=== PATIENT | male | born 1960 | race Caucasian/White ===

== ENCOUNTER 2025-03-14 12:53 | Outpatient (AMB) | payer BC, SELFPAY ==
[2025-03-14 12:57] VITALS: BP 140/88; PULSE 75; RESP 14; TEMP 37; O2SAT 99; BMI 24.1
--- NOTE | 2025-03-14 12:57 | MHC.PC.OV ---
Vital Signs 03/14/25 12:57 Height 5 ft 10 in Weight 168 lb BMI 24.1 BP 140/88 H Blood Pressure Location Lt brachial Position Sitting Respiration 14 Pulse 75 Pulse Source Pulse Oximeter Temp 98.6 F Temp Source Oral Pulse Oximetry (%) 99 Oxygen Delivery Method Room Air Intake Visit Reasons: establish care Intake Note: Patient is a new patient here to establish care. Transferring care from [facility] in [place], [place]. Medical records have been requested and have been received. Manager Technical Training Required: No Accompanied by: Self / Same As Patient Allergies No Known Allergies Allergy (Verified 03/14/25 13:21) Medication List - Last Reconciled 03/14/25 by ASHLEE King No Known Home Meds Tobacco use date assessed: 03/14/25 Dental Screening Dental Screen Date: 03/14/25 Did you have a dental visit in the last 12 months?: Yes Did you have a dental problem in the last 6 months where you did not have access to dental care?: No Was dental information given to patient?: Patient has dentist HPI establish care HPI Details Previous PCP:Sarmad [facility] in [place], [place] Last visit: 1.5 year ago Last PE: same Specialist: [employer] ([employer]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 He reports his blood pressure has been borderlined elevated, most recently noted at 140/88 mmHg during this visit, although not previously on medication. He suspects high salt intake in his diet as a potential factor for his elevated readings. The patient is asymptomatic apart from his known intermittent blood pressure elevations. Additionally, the patient describes persistent lower back pain following a fall last winter, resulting in blunt trauma to the sciatica, which initially caused swelling and bruising. Although acute symptoms subsided, he continues to experience pain during physical activities that strain his back. He has found that rest and positioning alleviate his symptoms. The patient has a notable family history of skin cancer, prompting regular dermatologic monitoring. While he had a skin lesion noted during showers where the skin occasionally breaks, dermatologic evaluation confirmed no malignancy. He remains mindful and monitors his skin regularly. Blood pressure elevated in office. colonoscopy: July,. 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 1. Little interest or pleasure in doing things: not at all 2. Feeling down, depressed, or hopeless: not at all 3. Trouble falling or staying asleep, or sleeping too much: not at all 4. Feeling tired or having little energy: not at all 5. Poor appetite or overeating: not at all 6. Feeling bad about yourself - or that you are a failure or have let yourself or your family down: not at all 7. Trouble concentrating on things, such as reading the newspaper or watching television: not at all 8. Moving or speaking so slowly that other people could have noticed. Or the opposite - being so fidgety or restless that you have been moving around a lot more than usual: not at all 9. Thoughts that you would be better off or of hurting yourself in some way: not at all Total score: 0 Depression Screening Interpretation: Negative Depression Screening Done: Yes 97839 - PHQ-9 Billing: Yes Source: Developed by Drs. Jr Olivarez, Patricia Whitley, Milan Neri and colleagues, with an educational kevin from [employer]. Thrive Questionnaire Date Thrive assessed: 03/14/25 I am a: Patient What is your living situation today?: I have a steady place to live Within the past 12 months, did the food you bought not last and you didn't have the money to get more?: Never true Within the past 12 months, did you worry whether your food would run out before you got money to buy more?: Never true Do you have trouble paying for medicines?: No Do you have trouble getting transportation to medical appointments?: No Do you have trouble paying your heating and electricity bill?: No Do you have trouble taking care of your child, family member or friend?: No Do you have trouble with day-to-day activities such as bathing, preparing meals, shopping, managing finances, etc.?: No Are you currently unemployed and looking for a job?: No Are you interested in more education?: No Please select the resources that you would like help with: None Currently or been in a relationship where the following occur: No concerns reported THRIVE Score: 0 AUDIT C Alcohol Use Questionnaire (AUDIT-C) 1. How often do you have a drink containing alcohol?: 4 or more times a week 2. How many drinks containing alcohol do you have on a typical day when you are drinking?: 1 or 2 3. How often do you have six or more drinks on one occasion?: Never Total Score: 4 Score Reviewed/Action Taken: Yes DARIA-7 AMB Questionnaire DARIA-7 Date DARIA - 7 assessed: 03/14/25 Feeling nervous, anxious, or on edge: 1 = Several days Not being able to stop or control worryin = Not at all Worrying too much about different things: 0 = Not at all Trouble relaxin = Not at all Being so restless that it is hard to sit still: 0 = Not at all Becoming easily annoyed or irritable: 0 = Not at all Feeling afraid as if something awful might happen: 0 = Not at all Total DARIA-7 score (0-4 normal; 5-9 mild; 10-14 moderate; 15-21 severe): 1 Source: Developed by Patricia Barillas. Gutierrez, Milan Neri and colleagues, with an educational kevin from [employer]. DARIA-7 Assessment Billing DARIA-7 Assessment Tool: DARIA-7 Assessment 06709 Review of Systems Const Denies headache(s) Eyes Denies loss of vision ENT Denies vertigo, Denies dizziness, Denies headache(s) and Denies sore throat Card Denies chest pain, Denies leg edema and Denies lightheadedness Resp Denies cough, Denies hemoptysis and Denies wheezing GI Denies abdominal pain, Denies melena, Denies constipation, Denies diarrhea and Denies vomiting Denies dysuria, Denies urinary frequency and Denies urinary urgency Musc Reports back pain (soreness from post fall), Denies arthralgias, Denies joint swelling, Denies numbness and Denies tingling Skin/Breast Reports lesions (left upper back skin tag appearing lesion) Neuro Denies Abnormal speech present, Denies behavioral changes, Denies vertigo, Denies dizziness, Denies headache(s), Denies loss of vision, Denies memory loss, Denies numbness and Denies tingling Psych Denies anxiety, Denies behavioral changes, Denies depression, Denies memory loss and Denies panic attacks Jorgito/Lymph Denies easy bleeding and Denies easy bruising Aller/Immun Denies wheezing Physical exam (Primary Care) Vital Signs: Last Vital Signs Temp 98.6 F 03/14/25 12:57 Pulse 75 03/14/25 12:57 Resp 14 03/14/25 12:57 BP 140/88 H 03/14/25 12:57 Pulse Ox 99 03/14/25 12:57 Oxygen Delivery Method Room Air 03/14/25 12:57 BMI result Body Mass Index 24.1 Tobacco/Smoking Status: Tobacco use Status Tobacco use date assessed 03/14/25 03/14/25 13:13 Patient Tobacco Use Status Never used Tobacco 03/14/25 13:13 e-Cigarette/Vaping Use Never Used 03/14/25 13:13 PHQ-9: PHQ-9 Score PHQ-9: Total score 0 03/14/25 13:13 Depression Screening Interpretation: Negative Thrive Assessment: Date of Thrive Assessment Date Thrive assessed 03/14/25 03/14/25 13:13 Currently or been in a relationship where the following occur: No concerns reported Const General: healthy appearing, no acute distress, alert and awake Nutritional Appearance: well nourished Orientation/consciousness: oriented to person, oriented to place and oriented to time HENMT Ears: TM's normal bilaterally General nose exam: Normal nasal mucous membranes and turbinates present Eyes Conjunctivae: conjunctivae normal Sclerae: sclerae normal Pupils: Equal, round and reactive pupils present Neck Neck: Yes no lymphadenopathy and Yes no JVD Thyroid: Thyroid normal Carotids: no bruits Resp Effort & Inspection: normal respiratory effort and not tachypneic Auscultation: no crackles, no rales, no rhonchi and no wheezes Cardio Rate: regular rate Rhythm: regular rhythm Heart sounds: no murmurs and normal S1 and S2 GI Palpation (GI): Soft to palpation, nontender, no hepatomegaly and no splenomegaly Auscultation: normal bowel sounds Skin General skin exam: dry skin Lesions: lesion noted (left upper back skin colored, skin tag) Neuro General: oriented to person, oriented to place and oriented to time Cranial nerves: Yes Equal, round and reactive pupils present Speech: No Abnormal speech present Gait exam (Neuro): Normal gait present Motor exam (neuro): no tremor noted Extrem Right upper extremity: full ROM Left upper extremity: full ROM Right lower extremity: full ROM; no edema Left lower extremity: full ROM; no edema Psych Mental Status: mental status grossly normal Speech and movement: Normal speech and movement present Affect: normal affect Attitude: cooperative Thought process: Normal thought process present Coding Level of Care Code New Pt Level 3 (20349) Diagnoses Family history of skin cancer Z80.8 Elevated blood pressure reading in office without diagnosis of hypertension R03.0 Additional Codes DARIA-7 Assessment Billing - DARIA-7 Assessment Tool: DARIA-7 Assessment 95524 ([id number]) PHQ-9 - 02306 - PHQ-9 Billing: Yes ([id number]) Time Spent (min) 34 Assessment & Plan Assessment & Plan (1) Family history of skin cancer: Code(s): Z80.8 - Family history of malignant neoplasm of other organs or systems Category: Medical Plan: skin colored, skin tag appearing lesion to left upper back reports being present for years without any changes evaluated by dermatology, no concerns he was instructed to follow in 2 years instead one (2) Elevated blood pressure reading in office without diagnosis of hypertension: Code(s): R03.0 - Elevated blood-pressure reading, without diagnosis of hypertension Category: Medical Plan: Elevated blood pressure reports eating a high amount of salt and drinking two drinks of alcohol nightly encouraged to cut down on both salt and alcohol intake will order labs and advise Return in 7 weeks for lab review and annual physical Orders: Orders UA CC w/rflx Micro + Cult Today Z00.00 - Encounter for general adult medical examination without abnormal findings Vitamin D 25-OH Total Today Z00.00 - Encounter for general adult medical examination without abnormal findings PSA,Total (Free>4and<10) Today Z00.00 - Encounter for general adult medical examination without abnormal findings Complete Blood Count Auto Diff Today Z00.00 - Encounter for general adult medical examination without abnormal findings Comprehensive [place]. Panel Fast Today Z00.00 - Encounter for general adult medical examination without abnormal findings Lipid Panel Today Z00.00 - Encounter for general adult medical examination without abnormal findings TSH reflex Free T4 Today Z00.00 - Encounter for general adult medical examination without abnormal findings
== END 2025-03-14 13:58 | disposition home or self-care (01) ==
DX: Z80.8 Family history of malignant neoplasm of other organs or systems (principal); R03.0 Elevated blood-pressure reading, without diagnosis of hypertension

== ENCOUNTER → 2025-03-14 12:53 | Outpatient (BNVA) | payer BC, SELFPAY | DX: R03.0 Elevated blood-pressure reading, without diagnosis of hypertension (principal); M54.50 Low back pain, unspecified; Z80.8 Family history of malignant neoplasm of other organs or systems | CPT/HCPCS: 96127 ==

== ENCOUNTER 2025-05-24 09:20 | Outpatient (REF) | payer BC, SELFPAY ==
[2025-05-24 09:47] LABS: MANUAL DIFF FLAG NO
--- OUTSIDE RECORDS SUMMARY | 2025-05-24 09:57 | XMS_ITS | Clinical Summary ---
Author Organization [facility] Address [address] [place] [address] [place] [id number] Phone Care Team Providers Care Strap Stitcher Name Role Phone Kelly Adams Primary Care Prov ider Allergies No known active allergies Medications naproxen sodium (ALEVE) 220 MG tablet Take 220 mg by mouth every 12 (twelve) hours as needed for pain (specific location in comments). Active Social History Tobacco Use Types Packs/Day Years Used Date Smoking Tobacco: Never Smokeless Tobacco: Never Tobacco Cessation:Counseling Given: Not Answered Alcohol Use Standard Drinks/Week Comments Yes 7 (1 standard drink = 0.6 oz pur e alcohol) 1 per day Education Answer Date Recorded Are you interested in more education? Not on martita e 06/29/2024 Are you concerned about learning? Not on file 06/29/2024 No 06/29/2024 No 06/29/2024 Digital Access Answer Date Recorded No 06/29/2024 No 06/29/2024 Reliable internet access at home? Not on file 06/29/2024 Device with a working camera? Not on file Intimate Partner Violence Answer Date R ecorded Denied Basic Needs Not on file 08/19/2024 In the past 12 months have y ou been in a relationship with a person who hurts, threatens, or tries to control you? No 08/19/2024 Worried food would run out Not on file 08/19 In the past 12 months have y ou been in a relationship with a person who hurts, threatens, or tries to control you? No 08/19/2024 Sex and Gender Information Value Date Recorded Sex Assigned at Not on file Legal Sex Male 9:45 PM EDT Gender Identity Not on file Sexual Orientation Not on file Last Filed Vital Signs Vital Sign Reading Time Taken Comments Blood Pressure 145/94 08/24/2024 1:28 PM EST Pulse 80 08/24/2024 1:28 PM EST Temperature 36.3 C (97.4 F) 08/24/2024 1:10 PM EST Respiratory Rate 16 08/24/2024 1:28 PM EST Oxygen Saturation 98% 08/24/2024 1:28 PM EST Inhaled Oxygen Concentration - - Weight 74.4 kg (164 lb) 08/19/2024 1:53 PM EST Height 177.8 cm (5' 10 ) 08/19/2024 1:53 PM EST Body Mass Index 23.53 08/19/2024 1:53 PM EST Plan of Treatment Health Maintenance Due Date Last Done Comments Adult Td,Tdap Booster 1960 LIPID PANEL 1960 DEPRESSION SCREENING 1974 HEPATITIS C SCREENING 1980 HIV ONE-TIME SCREENING (18-6 5 YEARS) 1980 COLOGUARD 2007 FIT TEST 2007 FOBT 2007 SIGMOIDOSCOPY 2007 VIRTUAL COLONOSCOPY 2007 PNEUMOCOCCAL VACCINES (50+ y ears) (1 of 1 - PCV) 2012 ZOSTER VACCINES (1 of 2) 2012 COVID-19 VACCINE ( - 2023-2 5 season) 2024 COLONOSCOPY 08/24/2034 08/24/2024 COLORECTAL CANCER SCREENING 08/24/2034 RSV VACCINE (1 - 1-dose 75+ series) 2037 SMOKING STATUS SCREENING (On ce After 26 Yrs) Completed 08/24/2024 HEPATITIS A VACCINES Aged Out No long er eligible based on patient's age to complete this topic HIB VACCINES Aged Out No longer eligi ble based on patient's age to complete this topic MENINGOCOCCAL VACCINES (ACWY) Aged Out No longer eligible based on patient's age to complete this topic MENINGOCOCCAL VACCINES (B) Aged Out N o longer eligible based on patient's age to complete this topic Medical Devices Implanted Type Area Fashion Photographer Device Identifier Shelf Expiration Date Model / Serial / Lot Clip Hemostasis 360deg 235cm Resolution 360 Latex Free 2.8mm Channel Bx/20ea - [id number] Implanted:Qty: 2 on 08/24/2024 by Lyndon Smith MD at [facility] [employer] [id number] / / Procedures Procedure Name Priority Date/Time Associated Diagnosis Comments ENDOSCOPY, COLON 08/24/2024 12:4 4 PM EST from Last 3 Months or Most Recently Relevant to Health Maintenance Results * ENDOSCOPY, COLON (08/24/2024 12:44 PM EST) Narrative Transcriptions Lyndon Smith MD - 08/24/2024 12:44 PM EST [facility] Patient Name: Chandler Yeboah Attending MD:: LYNDON SMITH MD, , Procedure Date: 08/24/2024 12:44PM Date of : 1960 Age: 64 Admit Type: Outpatient Gender: Male Room: [place] [address] Referring MD: MARK Rico Exam Type: Colonoscopy Indications: Screening for colorectal malignant neoplasm Medications: Monitored Anesthesia Care Procedure: Informed consent was obtained from the patientafter discussion of the indications, limitations, alternatives, benefits, and risks of the procedure. Risks specifically discussed include but are not limited to medication reactions, missed lesions, bleeding, perforation, or the need for emergent surgery. Throughout the procedure, the patient's blood pressure, pulse, end-tidal CO2, and oxygensaturations were monitored continuously. The Colonoscope was introduced through the anus and advanced to the cecum, identified by appendiceal orifice and ileocecal valve. The colonoscopy was performed without difficulty. The patient tolerated the procedure well. The quality of the bowel preparation was excellent. The quality of the bowel preparation was evaluated using the BBPS (BostonBowel Preparation Scale) with scores of: Right Colon = 3, Transverse Colon = 3 and Left Colon = 3 (entiremucosa seen well with no residual staining, smallfragments of stool or opaque liquid). The total BBPS score equals 9. Anatomical landmarks were photographed. Complications: No immediate complications. Estimated blood loss: Minimal. Findings: The perianal and digital rectal examinations were normal. A 7 mm polyp was found in the sigmoid colon. Thepolyp was sessile. The polyp was removed with a coldsnare. Resection and retrieval were complete. To prevent bleeding after the polypectomy, one hemostatic clip was successfully placed (MR conditional). There wasno bleeding at the end of the procedure. A 5 mm polyp was found in the rectum. The polyp was sessile. The polyp was removed with a cold snare. Resection and retrieval were complete. To prevent bleeding after the polypectomy, one hemostatic clip was successfully placed (MR conditional). There wasno bleeding at the end of the procedure. The exam was otherwise normal throughout theexamined colon. Impression: - One 7 mm polyp in the sigmoid colon, removed witha cold snare. Resected and retrieved. Clip (MR conditional) was placed. - One 5 mm polyp in the rectum, removed with a cold snare. Resected and retrieved. Clip (MRconditional) was placed. Recommendation: - Discharge patient to home. - Await pathology results. LYNDON SMITH MD, 08/24/2024 1:10:40 PM This report has been signed electronically. Number of Addenda: 0 Note Initiated On: 08/24/2024 12:44 PM Procedure Code(s): --- Professional --- 53664, Colonoscopy, flexible; with removal of tumor(s), polyp(s), or other lesion(s) by snare technique --- Technical --- 95296, Colonoscopy, flexible; with removal of tumor(s), polyp(s), or other lesion(s) by snare technique Diagnosis Code(s): --- Professional --- Z12.11, Encounter for screening for malignantneoplasm of colon D12.5, Benign neoplasm of sigmoid colon D12.8, Benign neoplasm of rectum --- Technical --- Z12.11, Encounter for screening for malignantneoplasm of colon D12.5, Benign neoplasm of sigmoid colon D12.8, Benign neoplasm of rectum CPT copyright 2021 [employer]. All rights reserved. The codes documented in this report are preliminary and upon prototype carpenter reviewmay be revised to meet current compliance requirements. Procedure Date: 08/24/2024 12:44:[address] [place] [address] Kelly FLORES GI PROCEDURE ORDER JEREMIAH Final Result from Last 3 Months or Most Recently Relevant to Health Maintenance Insurance [facility] PPO EPO [facility] PPO EPO PPO EPO PPO EPO [facility] PPO EPO Member Subscriber Plan / Payer (Ef fective 2024-Present) Name:Chandler Yeboah Relation to Subscriber:Spouse Name:YEBOAHABDIRIZAK Date of :1900 (Home) Address: [address] [place] [id number] Payer ID:[id number] (NAIC) Type:PPO Address: [address] [place], [place] [facility] PPO EPO Member Subscriber Plan / Payer (Ef fective 2024-Present) Name:Chandler Yeboah Relation to Subscriber:Spouse Name:YEBOAHABDIRIZAK PRIETO Date of :1900 (Home) Address: [address] [place] [address] Payer ID:[id number] (NAIC) Type:PPO Address: [address] [place], [place] Care Teams Strap Stitcher Relationship Specialty Start Date End Date Kelly Adams PA [address] [place] [phone] PCP - General Physician Ict Teacher 06/29/24 Additional Source Comments The information contained in this document represents components of the legal health record. It is not the complete legal health record.[facility]
--- OUTSIDE RECORDS SUMMARY | 2025-05-24 09:57 | XMS_ITS | Encounter Summary ---
Author Organization [facility] Address [address] [place] [phone] Phone Care Team Providers Care General Adjuster Name Role Phone Kelly Adams Primary Care Prov ider Encounter Details Date Type Department Care Team (Late st Contact Info) Description 08/24/2024 Procedure Pass [facility] Endoscopy Admitting Dept Virtual Department [address] [place] [address] Social History Tobacco Use Types Packs/Day Years Used Date Smoking Tobacco: Never Smokeless Tobacco: Never Alcohol Use Standard Drinks/Week Comments Yes 7 [...] on file Sexual Orientation Not on file documented as of this encounter Plan of Treatment Not on file documented as of this encounter Visit Diagnoses Not on filedocumented in this encounter Care Teams General Adjuster Relationship Specialty Start Date End Date Kelly Adams PA [address] [place] [address] PCP - General Physician Dog Catcher 06/29/24 documented as of this encounter Additional Source Comments The information contained in this document represents components of the legal health record. It is not the complete legal health record.[facility]
[2025-05-24 10:53] LABS: Hematocrit 45.4 % (42.0-52.0); Hemoglobin 15.0 g/dl (14.0-18.0); Imm Gran Abs Auto 0.01 X10*3/uL (0.00-0.03); Imm Gran Pct Auto 0.2 % (0.0-0.4); Lymphocytes Absolute Auto 1.3 X10*3/uL (1.2-4.9); Mean Corpuscular HGB Conc 33.0 g/dl (31.0-36.0); Mean Corpuscular Hemoglobin 29.8 pg (27.0-33.0); Mean Corpuscular Volume 90.1 fL (80.0-98.0); NRBC Abs Auto 0.000 X10*3/uL (0.0-0.012); NRBC Pct Auto 0.0 /100WBC (0.0-0.2); Platelet Count 203 X10*3/uL (160-400); Red Blood Count 5.04 X10*6/uL (4.60-5.80); White Blood Count 4.3 X10*3/uL (4.8-10.8)
[2025-05-24 11:13] LABS: Appearance Urine Clear; Glucose Urine UA Negative (Negative); PH 8.0 (5.0-9.0); Specific Gravity - Urine 1.015 (1.005-1.025)
[2025-05-24 11:25] LABS: Potassium 4.0 mmol/L (3.3-5.1); Sodium 139 mmol/L (135-145)
[2025-05-24 11:26] LABS: Alanine Aminotransferase 22 U/L (0-40); Albumin Level 4.3 g/dL (3.5-5.0); Alkaline Phosphatase 63 U/L (39-117); Anion Gap 10 (12-20); Aspartate Amino Transferase 25 U/L (5-37); Blood Urea Nitrogen 15 mg/dL (9-16); Calcium 8.8 mg/dL (8.4-10.2); Carbon Dioxide 28 mmol/L (22-29); Chloride 105 mmol/L (96-108); Cholesterol 186 mg/dL (<200); Estimated Glomerular Filt Rate > 60; HDL Cholesterol 49 mg/dL (>40); Total Protein 6.5 g/dL (6.5-8.0); Triglycerides 82 mg/dL (<150)
[2025-05-24 11:31] LABS: PSA,Total (Free>4and<10) 1.46 ng/mL (0.00-4.00)
== END 2025-05-24 09:21 | disposition home or self-care (01) ==
LOC: HO.LAB 09:20
DX: Z00.00 Encounter for general adult medical examination without abnormal findings (principal); Z12.5 Encounter for screening for malignant neoplasm of prostate; Z13.6 Encounter for screening for cardiovascular disorders
CPT/HCPCS: 36415; 80053; 80061; 81003; 82306; 84153; 84443; 85025

== ENCOUNTER 2025-06-02 15:28 | Outpatient (AMB) | payer BC, SELFPAY ==
--- OUTSIDE RECORDS SUMMARY | 2025-06-02 15:33 | XMS_ITS | Clinical Summary ---
Author Organization [facility] Address [address] [place] [address] [place] [id number] Phone Care Team Providers Care Loading Manager Name Role Phone Kelly Adams Primary Care [...] 2012 ZOSTER VACCINES (1 of 2) 2012 INFLUENZA VACCINE (#1) 2025 COVID-19 VACCINE ( - 2023-2 5 season) 2025 COLONOSCOPY 08/24/2034 08/24/2024 COLORECTAL CANCER SCREENING 08/24/2034 [...] this topic Medical Devices Implanted Type Area Web Portal Developer Device Identifier Shelf Expiration Date Model / Serial / Lot Clip Hemostasis 360deg 235cm Resolution 360 Latex Free 2.8mm Channel Bx/20ea - [id number] Implanted:Qty: 2 on 08/24/2024 by Lyndon Smith MD at [facility] [employer] [id number] / / Procedures Procedure Name Priority Date/Time Associated Diagnosis Comments ENDOSCOPY, COLON 08/24/2024 12:4 4 PM EST from Last 3 Months or Most Recently Relevant to Health Maintenance Results * ENDOSCOPY, COLON (08/24/2024 12:44 PM EST) Narrative Transcriptions Lyndon Smith MD - 08/24/2024 12:44 PM EST [facility] Patient Name: Chandler eYboah Attending MD:: LYNDON SMITH MD, , Procedure Date: 08/24/2024 12:44PM Date of : 1960 Age: 64 Admit Type: Outpatient Gender: Male Room: [place] [address] Referring MD: MARK Rico Exam Type: Colonoscopy [...] 12:44 PM Procedure Code(s): --- Professional --- 46310, Colonoscopy, flexible; with removal of tumor(s), polyp(s), or other lesion(s) by snare technique --- Technical --- 71031, Colonoscopy, flexible; with removal of tumor(s), polyp(s), or other lesion(s) by snare technique Diagnosis Code(s): --- Professional --- Z12.11, Encounter for screening for malignantneoplasm of colon D12.5, Benign neoplasm of sigmoid colon D12.8, Benign neoplasm of rectum --- Technical --- Z12.11, Encounter for screening for malignantneoplasm of colon D12.5, Benign neoplasm of sigmoid colon D12.8, Benign neoplasm of rectum CPT copyright 2021 [employer]. All rights reserved. The codes documented in this report are preliminary and upon travertine installer reviewmay be revised to meet current compliance requirements. Procedure Date: 08/24/2024 12:44:54 PM [address] [place], [place] [id number] Kelly FLORES GI PROCEDURE ORDER JEREMIAH Final Result from Last 3 Months or Most Recently Relevant to Health Maintenance [place] [address] PPO EPO PPO EPO PPO EPO PPO EPO Member Subscriber Plan / Payer (Ef fective 2024-Present) Name:Chandler Yeboah Relation to Subscriber:Spouse Name:ABDIRIZAK YEBOAH Date of :1900 (Home) Address: [address] [place] [address] Payer ID:[id number] (NAIC) Type:PPO Address: [address] [place], [place] [facility] PPO EPO Member Subscriber Plan / Payer (Ef fective 2024-Present) Name:Chandler Yeboah Relation to Subscriber:Spouse Name:JEFFABDIRIZAK Date of :1900 (Home) Address: [address] [place] [id number] Payer ID:[id number] (NAIC) Type:PPO Address: [address] [place], [place] [address] PPO EPO Care Teams Loading Manager Relationship Specialty Start Date End Date Kelly Adams PA [address] [place] [address] PCP - General Physician Senior It Security Analyst 06/29/24 Additional Source Comments The information contained in this document represents components of the legal health record. It is not the complete legal health record.[facility]
--- OUTSIDE RECORDS SUMMARY | 2025-06-02 15:33 | XMS_ITS | Encounter Summary ---
Author Organization [facility] Address [address] [place] [id number] Phone Care Team Providers Care Folder And Notcher Name Role Phone Kelly Aadms Primary Care Prov ider Encounter Details Date Type Department Care Team (Late st Contact Info) Description 08/24/2024 Procedure Pass [facility] Endoscopy Admitting Dept Virtual Department [address] [place] [address] Social History Tobacco Use Types Packs/Day Years [...] on filedocumented in this encounter Care Teams Folder And Notcher Relationship Specialty Start Date End Date Kelly Adams PA [address] [place] [address] PCP - General Physician Aircraft Assembler 06/29/24 documented as of this encounter Additional Source Comments The information contained in this document represents components of the legal health record. It is not the complete legal health record.[facility]
[2025-06-02 15:41] VITALS: BP 120/80; PULSE 91; TEMP 36.3; O2SAT 97; BMI 23.8
--- NOTE | 2025-06-02 15:41 | MHC.PC.OV ---
Vital Signs 06/02/25 15:41 Height 5 ft 10 in Weight 166 lb 2 oz BMI 23.8 BP 120/80 Blood Pressure Location Lt brachial Position Sitting Pulse 91 Pulse Source Pulse Oximeter Temp 97.3 F Temp Source Temporal Artery Scan Pulse Oximetry (%) 97 Oxygen Delivery Method Room Air Intake Visit Reasons: f/u Pot Firer Required: No Automotive Lot Attendant: Not Required per policy Accompanied by: Self / Same As Patient Allergies No Known Allergies Allergy (Verified 06/02/25 15:53) Medication List - Last Reconciled 06/02/25 by ASHLEE King No Known Home Meds Tobacco use date assessed: 06/02/25 Dental Screening Dental Screen Date: 06/02/25 Did you have a dental visit in the last 12 months?: Yes Did you have a dental problem in the last 6 months where you did not have access to dental care?: No Was dental information given to patient?: Patient has dentist HPI f/u HPI Details Dentist: up to date Eye: up to date Snellen: Right: Left: Corrected vision: yes-glasses STI screening: Colonoscopy: 2023 Pap Smer:n/a PHQ-9: Flu: no COVID: x3 Tdap: 2023 Diet: regular Exercise: Hung Chi and walks daily The patient is a 65-year-old male presenting for a wellness visit and management of chronic conditions. The patient has a history of sciatica, which started after a fall last winter. He experiences back pain that worsens with poor posture and physical activities like gardening. The pain sometimes radiates down the legs, managed with rest, hung chi, and ice, without the need for analgesics. The patient also reports plantar fasciitis, with numbness and discomfort in the feet, worsened by prolonged standing and inadequate footwear. He has been advised to massage the area and wear supportive shoes. Lab results show a slightly low white blood cell count, stable over time, and slightly elevated cholesterol levels, for which dietary changes are advised. The patient is active, practicing hung chi and walking daily. He follows a diet low in junk food, often skipping lunch for nuts and fruit, and consumes oatmeal for breakfast. He occasionally drinks alcohol in moderation during social events. [facility] Medical History Family history of skin cancer Surgical History History of anal fistulotomy Family History Father Heart disease Paternal Grandfather Malignant neoplastic disease Mother Dementia Brother Malignant tumor of pharynx Son Depression FH: mental illness Social History Household Members: Spouse Household Members Other:: : [place] Housing: House Alcohol intake: current Alcohol intake frequency: a few times a week Patient Tobacco Use Status: Never used Tobacco e-Cigarette/Vaping Use: Never Used Second Hand Smoke Exposure: No service: No Current occupational status: employed 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 1. Little interest or pleasure in doing things: not at all 2. Feeling down, depressed, or hopeless: not at all 3. Trouble falling or staying asleep, or sleeping too much: not at all 4. Feeling tired or having little energy: not at all 5. Poor appetite or overeating: not at all 6. Feeling bad about yourself - or that you are a failure or have let yourself or your family down: not at all 7. Trouble concentrating on things, such as reading the newspaper or watching television: not at all 8. Moving or speaking so slowly that other people could have noticed. Or the opposite - being so fidgety or restless that you have been moving around a lot more than usual: not at all 9. Thoughts that you would be better off or of hurting yourself in some way: not at all Total score: 0 Depression Screening Interpretation: Negative Depression Screening Done: Yes Source: Developed by Drs. Jr Olivarez, Patricia Whitley, Milan Neri and colleagues, with an educational kevin from [employer]. Thrive Questionnaire Date Thrive assessed: 06/02/25 I am a: Patient What is your living situation today?: I have a steady place to live Within the past 12 months, did the food you bought not last and you didn't have the money to get more?: Never true Within the past 12 months, did you worry whether your food would run out before you got money to buy more?: Never true Do you have trouble paying for medicines?: No Do you have trouble getting transportation to medical appointments?: No Do you have trouble paying your heating and electricity bill?: No Do you have trouble taking care of your child, family member or friend?: No Do you have trouble with day-to-day activities such as bathing, preparing meals, shopping, managing finances, etc.?: No Are you currently unemployed and looking for a job?: No Are you interested in more education?: No Please select the resources that you would like help with: None Currently or been in a relationship where the following occur: No concerns reported THRIVE Score: 0 AUDIT C Alcohol Use Questionnaire (AUDIT-C) 1. How often do you have a drink containing alcohol?: 4 or more times a week 2. How many drinks containing alcohol do you have on a typical day when you are drinking?: 1 or 2 3. How often do you have six or more drinks on one occasion?: Never Total Score: 4 Score Reviewed/Action Taken: Yes DARIA-7 AMB Questionnaire DARIA-7 Date DARIA - 7 assessed: 06/02/25 Feeling nervous, anxious, or on edge: 1 = Several days Not being able to stop or control worryin = Not at all Worrying too much about different things: 0 = Not at all Trouble relaxin = Not at all Being so restless that it is hard to sit still: 0 = Not at all Becoming easily annoyed or irritable: 0 = Not at all Feeling afraid as if something awful might happen: 0 = Not at all Total DARIA-7 score (0-4 normal; 5-9 mild; 10-14 moderate; 15-21 severe): 1 Source: Developed by Drs. Jr Olivarez, Patricia Whitley, Milan Neri and colleagues, with an educational kevin from [employer]. Review of Systems Const Denies headache(s) Eyes Denies loss of vision ENT Denies vertigo, Denies dizziness, Denies headache(s) and Denies sore throat Card Denies chest pain, Denies leg edema and Reports lightheadedness (When stands up quickly) Resp Denies cough, Denies hemoptysis and Denies wheezing GI Denies abdominal pain, Denies melena, Denies constipation, Denies diarrhea and Denies vomiting Denies dysuria, Denies urinary frequency and Denies urinary urgency Musc Reports back pain, Denies arthralgias, Denies joint swelling, Reports numbness (Feet-associated with plantar fasciitis), Reports radiating pain into limb (Bilateral intermittently) and Denies tingling Neuro Denies Abnormal speech present, Denies behavioral changes, Denies vertigo, Denies dizziness, Denies headache(s), Denies loss of vision, Denies memory loss, Reports numbness (Feet-associated with plantar fasciitis) and Denies tingling Psych Denies anxiety, Denies behavioral changes, Denies depression, Denies memory loss and Denies panic attacks Jorgito/Lymph Denies easy bleeding and Denies easy bruising Aller/Immun Denies wheezing Physical exam (Primary Care) Vital Signs: Last Vital Signs Temp 97.3 F 06/02/25 15:41 Pulse 91 06/02/25 15:41 BP 120/80 06/02/25 15:41 Pulse Ox 97 06/02/25 15:41 Oxygen Delivery Method Room Air 06/02/25 15:41 BMI result Body Mass Index 23.8 Tobacco/Smoking Status: Tobacco use Status Tobacco use date assessed 06/02/25 06/02/25 15:42 Patient Tobacco Use Status Never used Tobacco 06/02/25 15:42 e-Cigarette/Vaping Use Never Used 06/02/25 15:42 PHQ-9: PHQ-9 Score PHQ-9: Total score 0 06/02/25 16:00 Depression Screening Interpretation: Negative Thrive Assessment: Date of Thrive Assessment Date Thrive assessed 06/02/25 06/02/25 15:49 Currently or been in a relationship where the following occur: No concerns reported Const General: healthy appearing, no acute distress, alert and awake Nutritional Appearance: well nourished Orientation/consciousness: oriented to person, oriented to place and oriented to time HENMT Ears: TM's normal bilaterally General nose exam: Normal nasal mucous membranes and turbinates present Eyes Conjunctivae: conjunctivae normal Sclerae: sclerae normal Pupils: Equal, round and reactive pupils present Neck Neck: Yes no lymphadenopathy and Yes no JVD Thyroid: Thyroid normal Carotids: no bruits Resp Effort & Inspection: normal respiratory effort and not tachypneic Auscultation: no crackles, no rales, no rhonchi and no wheezes Cardio Rate: regular rate Rhythm: regular rhythm Heart sounds: no murmurs and normal S1 and S2 GI Palpation (GI): Soft to palpation, nontender, no hepatomegaly and no splenomegaly Auscultation: normal bowel sounds General: Yes no CVA tenderness Back/Spine/Pelvis Back: no CVA tenderness Thoracic/Lumbar Spine: straight leg raise negative bilaterally and No lumbar spinal tenderness Skin General skin exam: no rashes or lesions noted and dry skin Neuro General: oriented to person, oriented to place and oriented to time Cranial nerves: Yes CN's II-XII intact bilaterally and Yes Equal, round and reactive pupils present Speech: No Abnormal speech present Gait exam (Neuro): Normal gait present Motor exam (neuro): no tremor noted Deep tendon reflexes (DTR's): Right triceps reflex intensity grade: 2+, Left triceps reflex intensity grade: 2+, Rt Biceps (C5, C6): 2+, Left biceps reflex intensity grade: 2+, Right brachioradialis reflex intensity grade: 2+, Left brachioradialis reflex intensity grade: 2+, Right patellar reflex intensity grade: 2+ and Left patellar reflex intensity grade: 2+ Extrem Right upper extremity: full ROM Left upper extremity: full ROM Right lower extremity: full ROM; no edema Left lower extremity: full ROM; no edema Psych Mental Status: mental status grossly normal Speech and movement: Normal speech and movement present Affect: normal affect Attitude: cooperative Thought process: Normal thought process present Results Reviewed Results Reviewed: Laboratory Tests 05/24/25 05/24/25 09:40 09:45 WBC 4.3 L RBC 5.04 Hgb 15.0 Hct 45.4 MCV 90.1 MCH 29.8 MCHC 33.0 RDW 12.9 Plt Count 203 Sodium 139 Potassium 4.0 Chloride 105 Carbon Dioxide 28 Anion Gap 10 L BUN 15 Creatinine 0.90 Estimated GFR > 60 Fasting Glucose 96 Calcium 8.8 Total Bilirubin 0.8 AST 25 ALT 22 Alkaline Phosphatase 63 Total Protein 6.5 Albumin 4.3 Triglycerides 82 Cholesterol 186 LDL Cholesterol, Calc 121 H HDL Cholesterol 49 Total PSA 1.46 25-OH Vitamin D Total 31.4 TSH 1.02 Urine Color Yellow Urine Appearance Clear Urine pH 8.0 Ur Specific [place] 1.015 Urine Protein Negative Urine Glucose (UA) Negative Urine Ketones Negative Urine Blood Negative Urine Nitrite Negative Ur Leukocyte Esterase Negative Coding Level of Care Code Est Pt Prev Care 40-64y(97679) Diagnoses Annual physical exam Z00.00 Bilateral low back pain with bilateral sciatica, unspecified chronicity M54.42; M54.41 Chronicity: unspecified Back pain laterality: bilateral Sciatica presence: with sciatica Sciatica laterality: bilateral sciatica Elevated blood pressure reading in office without diagnosis of hypertension R03.0 Plantar fasciitis M72.2 Pure hypercholesterolemia E78.00 Hyperlipidemia type: pure hypercholesterolemia Time Spent (min) 37 Assessment & Plan Assessment & Plan (1) Annual physical exam: Code(s): Z00.00 - Encounter for general adult medical examination without abnormal findings Category: Medical Plan: The patient is a 64-year-old male presenting for annual physical. Preventive guidelines and recent labs reviewed with the patient. Colonoscopy was done last year. The patient is in overall good health. He is active and has been and dull should in a balanced diet. (2) Low back pain: Code(s): M54.50 - Low back pain, unspecified Category: Medical Qualifiers: Chronicity: unspecified Back pain laterality: bilateral Sciatica presence: with sciatica Sciatica laterality: bilateral sciatica Qualified Code(s): M54.42 - Lumbago with sciatica, left side; M54.41 - Lumbago with sciatica, right side Plan: The patient is advised to continue managing sciatica with rest, hung chi, and ice application. He should monitor posture during activities to prevent exacerbation of symptoms. (3) Elevated blood pressure reading in office without diagnosis of hypertension: Code(s): R03.0 - Elevated blood-pressure reading, without diagnosis of hypertension Category: Medical Plan: Blood pressure 120/80 today in office Reinforced low-salt diet and activity as tolerated (4) Plantar fasciitis: Code(s): M72.2 - Plantar fascial fibromatosis Category: Medical Plan: The patient is advised to massage the affected area and wear supportive footwear to alleviate symptoms of plantar fasciitis. (5) HLD (hyperlipidemia): Code(s): E78.5 - Hyperlipidemia, unspecified Category: Medical Qualifiers: Hyperlipidemia type: pure hypercholesterolemia Qualified Code(s): E78.00 - Pure hypercholesterolemia, unspecified Plan: LDL slightly elevated Dietary modifications are recommended to manage slightly elevated cholesterol levels, focusing on reducing intake of high-cholesterol foods.
== END 2025-06-02 16:26 | disposition home or self-care (01) ==
LOC: HO.HMCH 15:29
DX: Z00.00 Encounter for general adult medical examination without abnormal findings (principal); M54.42 Lumbago with sciatica, left side; M54.41 Lumbago with sciatica, right side; R03.0 Elevated blood-pressure reading, without diagnosis of hypertension; M72.2 Plantar fascial fibromatosis; E78.00 Pure hypercholesterolemia, unspecified